=== PATIENT | female | born 1950 | race Caucasian/White ===

== ENCOUNTER → 2017-09-02 | Outpatient (CLI) | payer MEDICARE ==
--- NOTE | 2017-09-02 13:14 | KCIC ---
DATE: 09/02/2017 EXAM: MAMMO GABRIELLE SCREENING BILATERAL Bilateral Screening Digital 2D and 3D Mammogram HISTORY: Screening Mammogram COMPARISON: Multiple prior examinations including 08/16/2016, 08/01/2015, 07/31/2014 This study was interpreted with the benefit of Computerized Aided Detection (CAD). The breast parenchyma shows scattered fibroglandular densities. Breast parenchyma level B. FINDINGS: Bilateral digital 2-D and 3-D tomosynthesis CC and MLO views. No suspicious mass, calcification or architectural distortion. No significant change from prior examination. There is a lower inner left breast loop recorder device. IMPRESSION: No mammographic evidence of malignancy. Recommend routine screening mammogram in 12 months. BI-RADS CATEGORY: 2 BENIGN FINDING(S) RECOMMENDED FOLLOW-UP: 12M 12 MONTH FOLLOW-UP PQRS compliance statement: Patient information was entered into a reminder system with a target due date August 2018 for the next mammogram. Mammography is a sensitive method for finding small breast cancers, but it does not detect them all and is not a substitute for careful clinical examination. A negative mammogram does not negate a clinically suspicious finding and should not result in delay in biopsying a clinically suspicious abnormality. "Our facility is accredited by the [employer] Mammography [employer]."
== END | disposition home or self-care (01) ==
LOC: KCIC MAMMO 11:22
PROVIDERS: ATTEND Internal Medicine
DX: Z12.31 Encounter for screening mammogram for malignant neoplasm of breast (principal)
CPT/HCPCS: 77063; G0202; 77067

== ENCOUNTER → 2017-11-15 | Outpatient (CLI) | payer MEDICARE | LOC: KCIC 10:13 | DX: M19.011 Primary osteoarthritis, right shoulder (principal); M48.02 Spinal stenosis, cervical region; M47.892 Other spondylosis, cervical region | CPT/HCPCS: 72050; 73030 ==

== ENCOUNTER → 2017-11-18 | Outpatient (CLI) | payer MEDICARE | END | disposition home or self-care (01) | LOC: KCIC MRI 12:05 | DX: M75.101 Unspecified rotator cuff tear or rupture of right shoulder, not specified as traumatic (principal); M62.511 Muscle wasting and atrophy, not elsewhere classified, right shoulder; M47.892 Other spondylosis, cervical region; M48.02 Spinal stenosis, cervical region; M41.84 Other forms of scoliosis, thoracic region; G96.19 Other disorders of meninges, not elsewhere classified; Z91.81 History of falling | CPT/HCPCS: 72141; 73221 ==

== ENCOUNTER → 2018-09-05 | Outpatient (CLI) | payer MEDICARE ==
--- NOTE | 2018-09-05 16:40 | KCIC ---
Bilateral digital screening mammograms with 3-D tomosynthesis: Reason for examination: Routine screening. Comparison is made to previous studies dated 09/02/2017 and 08/16/2016. Bilateral mammograms in CC and oblique projections were obtained with 2-D imaging and 3-D tomosynthesis imaging on a Siemens Inspiration unit and reviewed on the workstation. Interpretation was made with the benefit of CAD. A recorder device is present medially in the left breast. The skin and nipples show no abnormalities. No abnormal axillary lymph nodes are seen. The breast parenchyma shows scattered fatty and fibroglandular density. (Breast density: Category B.) There are intramammary lymph nodes present. There are no new dominant masses, suspicious calcifications or architectural distortion. Benign calcifications are present. Impression: No evidence of malignancy. Recommend routine screening. BI-RAD Category 2: Benign. "Our facility is accredited by the [employer] Mammography Program." This patient's information has been entered into a reminder system for the patient to be notified with the results of her examination and a target date for the next mammogram. Electronically signed by: Samira Frost MD (09/05/2018 4:37 PM) [id number]
== END | disposition home or self-care (01) ==
LOC: KCIC MAMMO 10:54
PROVIDERS: ATTEND Family Medicine
DX: Z12.31 Encounter for screening mammogram for malignant neoplasm of breast (principal)
CPT/HCPCS: 77063; 77067

== ENCOUNTER → 2019-07-02 | Outpatient (CLI) | payer MEDICARE ==
--- NOTE | 2019-07-02 18:05 | RAD ---
CLINICAL INDICATION: MENDOZA GABRIEL, who is 69 years of age, presents for diagnostic evaluation for nipple inversion. COMPARISON: Prior mammographic imaging dating back to 09/05/2018, 09/02/2017, 08/16/2016 TECHNIQUE: Bilateral CC and MLO views of both breasts were obtained using digital technique. In addition computer-aided detection tools were utilized. BREAST COMPOSITION: The breast tissue is heterogenously dense, which could obscure detection of small masses. MAMMOGRAM FINDINGS: When compared to prior mammogram 09/05/2018, there is now interval increase in density in the retroareolar left breast with associated retraction of the nipple. Underlying suspicious pleomorphic calcifications are seen. Therefore this asymmetry was further assessed by ultrasound. ULTRASOUND FINDINGS: Targeted ultrasound of the mammographic and patient area of concern of the left breast was performed. 2:00 position, 3 cm from the nipple: A hypoechoic irregular mass and non circumscribed margins is present measuring 2 x 1.7 x 1.5 cm. This extends into a hypoechoic irregular mass at the 1:30 position measuring 1 x 0.7 x 0.8 cm. In the retroareolar region of the left breast a 1 x 0.8 x 1 cm irregular hypoechoic mass is seen. IMPRESSION: 1. Left breast mass with suspicious imaging features for which tissue biopsy is recommended and can be performed with ultrasound imaging guidance. RECOMMENDATION: Biopsy recommended. The results and recommendation were discussed with patient at the end of the examination. The recommendation for biopsy was discussed by phone with the referring clinicians' (Dr. Solorio and Dr. Jones Faustin) nurse [place]- by Dr. Petty Burns at approximately 3:45 PM on the day of the imaging examination. BIRADS 5: HIGHLY SUGGESTIVE OF MALIGNANCY Electronically signed by: Chidi Burns MD (07/02/2019 6:02 PM) [facility]
== END | disposition home or self-care (01) ==
LOC: MAMMO 13:57
PROVIDERS: ATTEND Internal Medicine
DX: N63.21 Unspecified lump in the left breast, upper outer quadrant (principal); N64.52 Nipple discharge; N64.59 Other signs and symptoms in breast; R23.4 Changes in skin texture; Z80.3 Family history of malignant neoplasm of breast
CPT/HCPCS: 76641; 77066; G0279; 77062

== ENCOUNTER → 2019-07-06 | Outpatient (CLI) | payer MEDICARE ==
[~2019-07-06] MED LIST: LIDOCAINE 1% Multi-Dose 20 ML VIAL. ONE
--- NOTE | 2019-07-06 16:29 | RAD ---
CLINICAL INDICATION: LT BREAST MASS PRE-PROCEDURAL CONSULTATION: Details of the procedure and possible limitations and complications were discussed with the patient. After addressing her questions and concerns, written informed consent was obtained. A time out was then taken to verify patient's name and date of as well as site and laterality. PROCEDURE: The mass at the 2 o'clock position within the left breast was targeted under ultrasound. The skin of the left breast was cleansed and prepped in the typical sterile fashion. 5 cc of 1% lidocaine was used for local anesthesia. A small skin incision was then made to permit passage of a 14 gauge spring activated biopsy device. 5 core specimens were obtained. A S-shaped clip was then deployed at the biopsy site. Hemostasis was achieved. The patient tolerated the procedure well with no immediate complications. Post-procedural digital mammographic imaging of the left breast demonstrate the S-shaped clip in appropriate position. IMPRESSION: Successful ultrasound guided core needle biopsy of a mass at the 2 o'clock position within the left breast. Pathology is pending.
--- NOTE | 2019-07-09 17:07 | PATHOLOGY ---
[facility] Accession Number: [id number] . 01 Material submitted: . breast - LEFT BREAST BIOPSY 2:00. Modifiers: left . 01 Clinical history: . Left breast mass . 02 Diagnosis: Breast tissue, left breast mass needle biopsies: - INVASIVE DUCTAL CARCINOMA, HIGH GRADE. SEE COMMENT. . (JPM:jesus; 07/09/2019) QMS 07/09/2019 1634 Local . 02 Comment: Sections of the left breast mass needle biopsy reveal an invasive mammary carcinoma. The tumor cells are present in irregular nests which infiltrate an inflamed reactive desmoplastic stroma. The tumor shows little tubule formation, focal marked nuclear pleomorphism, and prominent mitotic activity. There is focal tumor necrosis. There are a few tumor associated calcifications. The invasive carcinoma measures up to 1.2 cm in greatest dimension in the slide. There is no lymphovascular tumor invasion. The morphologic findings are supportive of the diagnosis of an invasive high grade ductal carcinoma. Breast prognostic studies will be obtained, the results of which will be reported separately. The case is also examined by Dr. Hicks, who concurs with the diagnosis. (JPM:jesus; 07/09/2019) . 02 Electronically signed: . Rene Huggins MD, Pathologist NPI- [id number] . 01 Gross description: . The specimen is received in formalin, labeled "Madison Bell, left breast" and consists of 6 needle cores of yellow-pink fibroadipose tissue measuring between 0.5 cm and 1.4 cm in length and 0.1-0.2 cm each in diameter. They are entirely submitted in A1-A3. The specimen was obtained at 12:52 PM on 07/06/2019 and placed in formalin at 1:02 PM. The cold ischemic time is 7 minutes and the total formalin fixation time is greater than 6 hours but less than 72 hours. (SDY; 07/06/2019) SYU/SYU 07/09/2019 0920 [facility] . 02 Pathologist provided ICD-10: C50.912 . 02 CPT . 315660 Specimen Comment: A courtesy copy of this report has been sent to Specimen Comment: [phone], , . Specimen Comment: Report sent to ,DR CONTEH / DR PAEZ Performed at: [address] [facility], [place] [id number] MD Himanshu Kwok MD Phone: [phone] Performed at: [facility] [address] [place] [id number] MD Rene Huggins MD Phone: [phone]
== END | disposition home or self-care (01) ==
LOC: US 15:01
PROVIDERS: ATTEND Internal Medicine
DX: N63.20 Unspecified lump in the left breast, unspecified quadrant (principal); C50.912 Malignant neoplasm of unspecified site of left female breast
CPT/HCPCS: 19083; 77065; 88305; 88361; C1713; 19081; 76942